=== PATIENT | male | born 1990 | race Caucasian/White ===

== ENCOUNTER 2017-04-08 20:47 | Emergency (ER) | payer OTHER ==
[2017-04-08] MEDS ORDERED: Bacitracin Oint 1 GM U/D Packet TOP ONE (21:53)
[2017-04-08] MEDS ORDERED: Diphtheria,Pertussis(Acell),Tetanus Vaccine 0.5 ML SDV IM ONE (21:53)
[2017-04-08] MEDS ORDERED: Lidocaine 1% 30 ML SDV INJECT ONE (21:53)
[2017-04-08 21:56] VITALS: BP 132/87
--- NOTE | 2017-04-08 23:25 | EDM.PDOC ---
ED HPI GENERAL MEDICAL PROBLEM - General Chief Complaint: Laceration Stated Complaint: LACERATION TO THE PALM, [id number] Time Seen by Provider: 04/08/17 22:00 Source of Information: Reports: Patient History Limitations: Reports: No Limitations - History of Present Illness INITIAL COMMENTS - FREE TEXT/NARRATIVE: laceration to right palm from fillet knife. Onset: Today Location: Reports: Upper Extremity, Left Right Hand Pain Score (Numeric/FACES): 3 - Related Data Allergies Allergy/AdvReac Type Severity Reaction Status Date / Time penicillin G Allergy Hives Verified 04/08/17 22:02 Past Medical History HEENT History: Reports: Impaired Vision Social & Family History - Tobacco Use Smoking Status *Q: Never Smoker - Caffeine Use Caffeine Use: Reports: Coffee, Energy Drinks, Soda - Alcohol Use Days Per Week of Alcohol Use: 2 Number of Drinks Per Day: 6 Total Drinks Per Week: 12 - Recreational Drug Use Recreational Drug Use: No ED ROS GENERAL - Review of Systems Review Of Systems: ROS reveals no pertinent complaints other than HPI. ED EXAM, SKIN/RASH Exam: See Below Exam Limited By: No Limitations General Appearance: Alert, No Apparent Distress Eye Exam: Bilateral Eye: EOMI Ears: Normal External Exam Nose: Normal Inspection Throat/Mouth: Normal Inspection, Normal Voice Head: Atraumatic, Normocephalic Respiratory/Chest: No Respiratory Distress Cardiovascular: Regular Rate, Rhythm Neurological: Alert, Normal Cognition Skin: Normal Color, Wound/Incision (1.5x1.5 cm V laceration to left palm mid 5th carpal) ED SKIN PROCEDURES - Laceration/Wound Repair Left Hand Appearance: Superficial Distal NVT: Neuro & Vascular Intact Anesthetic Type: Local Local Anesthesia - Lidocaine (Xylocaine): 1% Plain Local Anesthetic Volume: 2cc Skin Prep: Chlorhexidine (Hibiciens), Saline Exploration/Debridement/Repair: Wound Explored Closed with: Sutures Suture Size: 4-0 # of Sutures: 6 Course - Vital Signs Last Recorded V/S: Last Vital Signs Temp 98.5 F 04/08/17 21:55 Pulse 95 04/08/17 21:55 Resp 18 04/08/17 21:55 BP 132/87 04/08/17 21:55 Pulse Ox 100 04/08/17 21:55 - Orders/Labs/Meds Orders: Active Orders 24 hr Category Date Time Status Vaccines to be Administered [RC] PER UNIT ROUTINE Care 04/08/17 21:53 Active Meds: Medications Discontinued Medications Generic Name Dose Route Start Last Admin Trade Name [place] PRN Reason Stop Dose Admin Bacitracin 1 dose 04/08/17 21:53 04/08/17 22:30 Bacitracin Oint 1 Gm TOP 04/08/17 21:54 1 dose ONETIME ONE Administration Diphtheria/Tetanus/Acell Pertussis 0.5 ml 04/08/17 21:53 04/08/17 22:03 Adacel IM 04/08/17 21:54 0.5 ml .ONCE ONE Administration Lidocaine HCl 30 ml 04/08/17 21:53 04/08/17 22:30 Xylocaine-Mpf 1% INJECT 04/08/17 21:54 30 ml ONETIME ONE Administration Departure - Departure Time of Disposition: 23:23 Disposition: Home, Self-Care 01 Condition: Good Clinical Impression: Broken skin - Discharge Information Instructions: Stitches, [place], or Adhesive Wound Closure, [id number] Forms: ED Department Discharge Additional Instructions: keep area clean and dry wash twice daily with soap and water cover with dressing and antibiotic ointment may get wet in shower after tomorrow monitor for infection, follow up if redness drainage or swelling sutures out 10-14 days - My Orders Last 24 Hours: My Active Orders 04/08/17 21:53 Vaccines to be Administered [RC] PER UNIT ROUTINE - Assessment/Plan Last 24 Hours: My Active Orders 04/08/17 21:53 Vaccines to be Administered [RC] PER UNIT ROUTINE
== END 2017-04-08 23:28 | disposition home or self-care (01) ==
LOC: DL.ED 20:47
DX: S61.411A Laceration without foreign body of right hand, initial encounter (principal); Z88.0 Allergy status to penicillin; Z23 Encounter for immunization; W26.0XXA Contact with knife, initial encounter
CPT/HCPCS: 12002; 90471; 90715; 99283